=== PATIENT | male | born 1980 | race Hispanic/Latino ===

== ENCOUNTER 2022-11-10 13:14 | Emergency (ER) | payer OTHER ==
[~2022-11-10] VITALS: Ht 165.1 cm; Wt 81.6 kg
[2022-11-10] MEDS ORDERED: LIDOCAINE HCL 1% 20 ML VIAL ONE (17:31)
[2022-11-10] MEDS ORDERED: BUPIVACAINE/PF 0.5% 30ML VIAL ONE (17:45)
[2022-11-10] MEDS ORDERED: BUPIVACAINE/PF 0.5% 10ML VIAL IJ ONE (18:00)
[2022-11-10] MEDS ORDERED: TRAM50TA4 PO (18:33)
[2022-11-10 19:38] VITALS: BP 145/72
== END 2022-11-10 19:48 | disposition home or self-care (01) ==
LOC: EDH 13:14
DX: S52.501A Unspecified fracture of the lower end of right radius, initial encounter for closed fracture (principal); V87.8XXA Person injured in other specified noncollision transport accidents involving motor vehicle (traffic), initial encounter; Y93.89 Activity, other specified; Y92.89 Other specified places as the place of occurrence of the external cause; Y99.8 Other external cause status
CPT/HCPCS: 99284; 73100; 73130; 29125; J3490 ×2